=== PATIENT | male | born 1990 | race Caucasian/White ===

== ENCOUNTER 2018-09-29 15:39 | Emergency (ER) | payer OTHER ==
[~2018-09-29] VITALS: Ht 170.2 cm; Wt 63.5 kg
[2018-09-29] MEDS ORDERED: SEROQUEL 100 M100 M1 PO (15:49)
[2018-09-29] MEDS ORDERED: ZOLOFT50 MG PO (15:49)
[2018-09-29] MEDS ORDERED: ABILIFY MAINTE300 M1 IM (15:50)
[2018-09-29 16:11] LABS: ABSOLUTE BASOPHILS 0.1 thou/uL (0.0-0.2); ABSOLUTE EOSINOPHILS 0.1 thou/uL (0.0-0.7); ABSOLUTE LYMPHOCYTES 1.9 thou/uL (0.8-5.3); ABSOLUTE MONOCYTES 0.4 thou/uL (0.0-1.2); ABSOLUTE NEUTROPHILS 3.1 thou/uL (1.6-8.1); BASOPHILS 1.1 %; EOSINOPHILS 1.9 %; HEMATOCRIT 49.9 % (42.0-52.0); HEMOGLOBIN 16.9 gm/dL (14.0-18.0); LYMPHOCYTES 34.5 %; MCHC 33.9 g/dL (28.0-37.0); MCV 94.3 fL (80.0-100.0); MONOCYTES 7.5 %; MPV 8.1 fl. (7.2-11.1); NUCLEATED RBCS 0 /100WBC; PLATELET COUNT* 210 thou/uL (150-400); RBC 5.29 mil/uL (4.50-6.00); RDW-CV 13.6 % (10.5-14.5); WBC 5.6 thou/uL (4.0-11.0)
[2018-09-29 16:23] LABS: CALCIUM 8.7 mg/dL (8.5-10.1); CREATININE 1.1 mg/dL (0.6-1.3); POTASSIUM 3.5 mmol/L (3.5-5.1)
[2018-09-29 16:27] LABS: ALBUMIN 3.8 g/dL (3.4-5.0); TOTAL BILIRUBIN 0.5 mg/dL (<0.1-1.0); TOTAL PROTEIN 7.5 g/dL (6.4-8.2)
[2018-09-29 17:14] VITALS: BP 131/80
== END 2018-09-29 17:15 | disposition home or self-care (01) ==
LOC: M.ERS 15:39
PROVIDERS: Family Medicine
DX: M43.6 Torticollis (principal); F25.9 Schizoaffective disorder, unspecified

== ENCOUNTER 2021-04-30 16:05 | Inpatient (IN) | payer OTHER ==
[2021-04-30] VITALS (9 sets, daily range): BP systolic 115–131; BP diastolic 50–79
[~2021-04-30] VITALS: Ht 170.2 cm; Wt 75.8 kg
[~2021-04-30 16:05] MED LIST: ABILIFY MAINTE300 M1 IM; SEROQUEL 100 M100 M1 PO; ZOLOFT 50 MG TA50 MG PO
[2021-04-30] MEDS ORDERED: NAPROSYN500 M1 PO (16:26)
[2021-04-30 16:38] LABS: HEMOGLOBIN 15.9 gm/dL (14.0-18.0); MCH 33.4 pg (26.0-34.0); MCHC 36.2 g/dL (28.0-37.0); MCV 92.2 fL (80.0-100.0); MPV 7.4 fl. (7.2-11.1); NUCLEATED RBCS 0 /100WBC; PLATELET COUNT* 232 thou/uL (150-400); RBC 4.77 mil/uL (4.50-6.00); RDW-CV 13.3 % (10.5-14.5); WBC 20.1 thou/uL (4.0-11.0)
[2021-04-30 16:46] LABS: CALCIUM 9.5 mg/dL (8.5-10.1); CREATININE 1.6 mg/dL (0.6-1.3)
[2021-04-30 16:49] LABS: POTASSIUM 2.5 mmol/L (3.5-5.1)
[2021-04-30 16:50] LABS: BE 5.3 mmol/L (-2 to +3); PO2 93.5 mmHg (75.0-100.0); pH 7.512 (7.340-7.450)
[2021-04-30 16:59] LABS: ABSOLUTE LYMPHOCYTES 0.6 thou/uL (0.8-5.3); ABSOLUTE MONOCYTES 0.4 thou/uL (0.0-1.2); ABSOLUTE NEUTROPHILS 19.1 thou/uL (1.6-8.1); ACETAMINOPHEN < 2 ug/mL (10-30); ALCOHOL < 10 mg/dL (<10); SALICYLATE 3.2 mg/dL (2.8-20.0)
[2021-04-30 17:00] LABS: ALBUMIN 4.4 g/dL (3.4-5.0); PLATELET ESTIMATE ADEQUATE; TOTAL BILIRUBIN 0.5 mg/dL (<0.1-1.0); TOTAL PROTEIN 7.7 g/dL (6.4-8.2)
[2021-04-30 18:10] LABS: URINE BILIRUBIN NEGATIVE (Negative); URINE BLOOD 2+ (Negative); URINE CLARITY CLEAR; URINE COLOR YELLOW; URINE GLUCOSE-RANDOM NEGATIVE (Negative); URINE KETONES NEGATIVE (Negative); URINE LEUKOCYTES NEGATIVE (Negative); URINE NITRITE NEGATIVE (Negative); URINE PROTEIN NEGATIVE (Negative); URINE SPECIFIC GRAVITY <= 1.005 (1.005-1.030); URINE UROBILINOGEN 0.2 E.U./dl (0.2-1.0)
[2021-04-30 18:17] LABS: AMP/METHAMP Negative (Negative); BARBITURATES Negative (Negative); BENZODIAZEPINES Negative (Negative); COCAINE Negative (Negative); METHADONE Negative (Negative); OPIATES Negative (Negative); PCP Negative (Negative); THC Negative (Negative)
[2021-04-30 18:33] LABS: BACTERIA 1-9 Few /HPF (None Seen); CASTS None Seen /LPF (None Seen); CRYSTALS None Seen /LPF (None Seen); MUCUS 0-3 Light strn/LPF (None Seen); SQUAMOUS 0-3 Few /LPF (0-3); URINE RBC 3-10 Few /HPF (0-2); URINE WBC None Seen /HPF (0-5)
[2021-04-30 20:04] LABS: CALCIUM 8.3 mg/dL (8.5-10.1); CREATININE 1.3 mg/dL (0.6-1.3); MAGNESIUM 1.2 mg/dL (1.8-2.4); POTASSIUM 3.2 mmol/L (3.5-5.1)
[2021-05-01] VITALS (18 sets, daily range): BP systolic 113–129; BP diastolic 65–87
[2021-05-01 04:44] LABS: ABSOLUTE LYMPHOCYTES 1.6 thou/uL (0.8-5.3); ABSOLUTE MONOCYTES 1.4 thou/uL (0.0-1.2); ABSOLUTE NEUTROPHILS 12.1 thou/uL (1.6-8.1); BASOPHILS 0.1 %; HEMATOCRIT 39.6 % (42.0-52.0); LYMPHOCYTES 10.7 %; MCH 32.4 pg (26.0-34.0); MCHC 34.5 g/dL (28.0-37.0); MCV 93.8 fL (80.0-100.0); MONOCYTES 9.5 %; MPV 8.2 fl. (7.2-11.1); NUCLEATED RBCS 0 /100WBC; PLATELET COUNT* 206 thou/uL (150-400); POLYS 79.7 %; RBC 4.22 mil/uL (4.50-6.00); RDW-CV 13.5 % (10.5-14.5); WBC 15.2 thou/uL (4.0-11.0)
[2021-05-01 04:49] LABS: HEMOGLOBIN 13.7 gm/dL (14.0-18.0)
[2021-05-01 05:08] LABS: CALCIUM 8.2 mg/dL (8.5-10.1); CREATININE 1.4 mg/dL (0.6-1.3)
[2021-05-01 05:13] LABS: POTASSIUM 4.2 mmol/L (3.5-5.1)
--- NOTE | 2021-05-01 13:58 | EKG ---
[place] [address] ELECTROCARDIOGRAM REPORT Name: MANISH ACEVEDO Sebastián Room: [address] ADM IN .R.#: [id number] Admission: 04/30/21 Attend Phys: Jaspreet Segura, Discharge: Date of : 86 Date of Service: 04/30/21 1629 Report #: [id number] THIS REPORT FOR: //name// [facility] ED Test Date: 2021-04-30 Test Time: 16:29:52 Pat Name: MANISH ACEVEDO Department: Room: [facility] Gender: M Coffee Maker: LUZ : 1990 Requested By: Avila Zhao Order Number: [id number] MD: Lee Rosario Measurements Intervals [place] Rate: 124 P: -18 [place]: 183 QRS: -16 QRSD: 77 T: 34 QT: 283 QTc: 407 Interpretive Statements Sinus tachycardia Left atrial enlargement Borderline left axis deviation Borderline T abnormalities, anterior leads No previous ECG available for comparison Electronically Signed On 05-01-2021 13:58:41 CDT by Lee Rosario [email or web address] <ELECTRONICALLY SIGNED> By: Lee Rosario MD, [facility] 05/01/21 1358 1629 1629 Lee Rosario MD, [facility] /EPI
[2021-05-02] VITALS (7 sets, daily range): BP systolic 107–150; BP diastolic 61–85
[2021-05-02 05:04] LABS: HEMATOCRIT 37.8 % (42.0-52.0); MCH 32.5 pg (26.0-34.0); MCHC 34.3 g/dL (28.0-37.0); MCV 94.9 fL (80.0-100.0); MPV 8.4 fl. (7.2-11.1); RBC 3.99 mil/uL (4.50-6.00); RDW-CV 13.7 % (10.5-14.5)
[2021-05-02 05:09] LABS: CALCIUM 8.4 mg/dL (8.5-10.1); CREATININE 1.2 mg/dL (0.6-1.3); POTASSIUM 3.9 mmol/L (3.5-5.1)
[2021-05-03 04:24] VITALS: BP 141/79
[2021-05-03 08:00] VITALS: BP 120/70
[2021-05-03 12:03] VITALS: BP 129/71
[2021-05-03 16:21] VITALS: BP 126/70
[2021-05-03 19:45] VITALS: BP 123/88
== END 2021-05-03 21:34 | DRG 917 ==
LOC: M.ERS 16:05 → M.ICU 16:51 → M.TBA-ER 16:51 → M.ICU 17:29 → M.2W 05-02 06:11
PROVIDERS: Emergency Medicine; Family Medicine; ADMIT Internal Medicine; ATTEND Internal Medicine
DX: T39.312A Poisoning by propionic acid derivatives, intentional self-harm, initial encounter (principal); N17.0 Acute kidney failure with tubular necrosis; M62.82 Rhabdomyolysis; R65.10 Systemic inflammatory response syndrome (SIRS) of non-infectious origin without acute organ dysfunction; R45.851 Suicidal ideations; T43.592A Poisoning by other antipsychotics and neuroleptics, intentional self-harm, initial encounter; T43.612A Poisoning by caffeine, intentional self-harm, initial encounter; Z20.822 Contact with and (suspected) exposure to COVID-19; F17.210 Nicotine dependence, cigarettes, uncomplicated; F32.9 Major depressive disorder, single episode, unspecified; F41.9 Anxiety disorder, unspecified; F19.10 Other psychoactive substance abuse, uncomplicated; E87.6 Hypokalemia; T43.222A Poisoning by selective serotonin reuptake inhibitors, intentional self-harm, initial encounter; Y92.89 Other specified places as the place of occurrence of the external cause; Z79.899 Other long term (current) drug therapy